=== PATIENT | male | born 1980 | race Caucasian/White ===

== ENCOUNTER 2020-02-01 17:56 | Emergency (ER) | payer OTHER ==
[2020-02-01 18:07] VITALS: TEMP 99; BMI 29.0
--- NOTE | 2020-02-01 18:07 | PDOC ---
Rapid Medical Evaluation Time Seen by Provider: 02/01/20 18:04 Medical Evaluation: Allergies Allergy/AdvReac Type Severity Reaction Status Date / Time No Known Allergies Allergy Verified 02/01/20 18:04 02/01/20 18:05 CC: stung by a bee yesterday in mouth while drinking soda , hx allergies to bees, now with difficulty swallowing Exam: noted edema under chin extending to upper ant aspect of neck, vss Plan: iv, dph, decadron Discharge Disposition - Diagnosis Allergy to bee sting - Referrals - Patient Instructions - Post Discharge Activity
[2020-02-01] MEDS ORDERED: methylPREDNISolone NA SUCC 125 MG/2 ML VIAL IVPB ONE (18:11)
[2020-02-01] MEDS ORDERED: methylPREDNISolone NA SUCC 125 MG/2 ML VIAL ONE (18:34)
[2020-02-01] MEDS ORDERED: DEXAMETHASONE SOD PHOSPHATE 20 MG/5 ML VIAL IVPB ONE (20:16)
[2020-02-01] MEDS ORDERED: FAMOTIDINE 20 MG/50 ML IVPB 20 MG/50 ML MG IVPB ONE ×2 (20:17→20:23)
[2020-02-01] MEDS ORDERED: DEXAMETHASONE SOD PHOSPHATE 4 MG/1 ML VIAL ONE (20:23)
--- NOTE | 2020-02-01 20:25 | PDOC ---
History of Present Illness - General Chief Complaint: Bite Stated Complaint: INSECT BITE Time Seen by Provider: 02/01/20 18:04 - History of Present Illness Initial Comments: 39 yo male with no significant PMH presents after getting stung by a bee. Pt says he was drinking his soda yesterday when he got stung by a bee on the right side of his tongue. He woke up this morning with swelling on his tongue and neck. He endorses difficulty swallowing and breathing. He has a known hx of bee sting allergy with a previous sting in his hand causing swelling in his arm and neck. He also endorses chills. He denies fevers, headache, blurred vision, lightheadedness, cp, nvd. He does not have any other allergies. Past History - Medical History Allergies/Adverse Reactions: Allergies Allergy/AdvReac Type Severity Reaction Status Date / Time bee venom protein (honey bee) Allergy Verified 02/01/20 18:07 Home Medications: Ambulatory Orders Epinephrine [Epipen 2-John] 0.3 mg IJ ASDIR #1 kit 02/02/20 COPD: No - Immunization History Immunization Up to Date: Yes - Psycho-Social/Smoking History Smoking History: Never smoked - Substance Abuse Hx (Audit-C & DAST Scrn) How often the patient has a drink containing alcohol: Never Score: In Men: 4 or > Positive; In Women: 3 or > Positive: 0 Screen Result (Pos requires Nsg. Audit-10AR): Negative In the last yr the pt used illegal drug/Rx for NonMed reason: No Score: Yes response is considered Positive: 0 Screen Result (Positive result requires Nsg. DAST-10): Negative Review of Systems - Review of Systems Able to Perform ROS?: Yes Constitutional: Yes: Chills. No: Diaphoresis, Fever HEENTM: Yes: Throat Swelling, Mouth Pain, Difficulty Swallowing. No: Recent change in vision, Double Vision Respiratory: Yes: Shortness of Breath. No: Cough, Productive cough Cardiac (ROS): No: Chest Pain, Chest Tightness ABD/GI: No: Constipated, Diarrhea, Nausea, Vomiting : No: Burning, Dysuria Musculoskeletal: No: Joint Pain, Muscle Pain Neurological: No: Headache, Weakness, Ataxia, Dizziness Psychiatric: No: Anxiety, Depression, Mood Swings Endocrine: No: Intolerance to Cold, Intolerance to Heat Hematologic/Lymphatic: No: Anemia, Easy Bruising *Physical Exam - Vital Signs Last Vital Signs Temp Pulse Resp BP Pulse Ox 99.0 F 85 18 131/94 100 02/01/20 18:04 02/01/20 18:04 02/01/20 18:04 02/01/20 18:04 02/01/20 18:04 - Physical Exam General Appearance: Yes: Appropriately Dressed. No: Apparent Distress HEENT: positive: Other (swollen tongue and neck. slurred speech. no stridor.) Neck: positive: Trachea midline, Other (right sided swelling). negative: Tender Respiratory/Chest: positive: Lungs Clear, Normal Breath Sounds. negative: Respiratory Distress Cardiovascular: positive: Regular Rhythm, Regular Rate, S1, S2. negative: Edema, JVD Gastrointestinal/Abdominal: positive: Normal Bowel Sounds, Flat, Soft. negative: Tender Musculoskeletal: positive: Normal Inspection. negative: Decreased Range of Motion Extremity: positive: Normal Capillary Refill, Normal Inspection, Normal Range of Motion Integumentary: positive: Normal Color, Dry, Warm, Swelling Neurologic: positive: director rehabilitation program II-XII NML intact, Fully Oriented, Alert, Normal Mood/Affect ED Treatment Course - Medications Given in the ED: ED Medications Discontinued Medications Generic Name Dose Route Start Last Admin Trade Name Freq PRN Reason Stop Dose Admin Diphenhydramine HCl 50 mg 02/01/20 18:07 02/01/20 18:48 Benadryl Injection - IVPB 02/01/20 18:08 50 mg ONCE ONE Administration Methylprednisolone Sodium Succinate 125 mg 02/01/20 18:11 02/01/20 18:57 Solu-Medrol - IVPB 02/01/20 18:12 125 mg ONCE ONE Administration Medical Decision Making - Medical Decision Making 39 yo male with no PMH presents 24 hours after a bee sting to the right sided tongue with difficulty in breathing/swallowing. Pt treated with famotidine, benadryl, methylprednisone, dexamethasone Symptoms gradually improving. Pt placed on monitor and showing normal vitals with regular pCO2 capnography Plan to keep patient in ED overnight to assess airway. Anesthesia called to assess airway at bedside in case we needed emergency intubation. Pt discharged to Dr. Dominguez Discharge - Discharge Information Problems reviewed: Yes Clinical Impression/Diagnosis: Allergy to bee sting, Submandibular swelling, Tongue swelling Condition: Good Disposition: HOME - Admission No - Additional Discharge Information Prescriptions: Epinephrine [Epipen 2-John] 0.3 mg IJ ASDIR #1 kit - Follow up/Referral Referrals: Anel Cain MD [Staff Physician] - - Patient Discharge Instructions Patient Printed Discharge Instructions: DI for Insect Allergy, How to use an Epinephrine Auto-Injector -- Adult Additional Instructions: You were seen today for swelling to your tongue and area under your tongue. This was likely an allergic reaction to the bee sting. It appears as though you are allergic to bees. Be careful around them. The next reaction could be worse! I have sent a prescription for an Epi pen to your pharmacy. You need to keep this with you. Use it like we talked about before you left. I have also included a few packets about your condition and the Epi pen. You should read those. You need to follow up with a primary care doctor. I have entered a referral for you to see Dr. Cain. You will need to call to make an appointment. The number is included in this packet. A copy of todays results are attached to this packet. Take it to the appointment so your doctor can review them. Return to the ED for new or worsening symptoms, including trouble swallowing, tongue swelling, or noisy breathing. Print Language: KINYARWANDA - Post Discharge Activity Work/Back to School Note: Back to Work
--- NOTE | 2020-02-01 22:34 | PDOC ---
Documentation entered by Aliyah Driscoll SCRIBE, acting as scribe for Danisha Tafoya MD. Danisha Tafoya MD: This documentation has been prepared by the scribe, Aliyah Dyson SCRIBE, under my direction and personally reviewed by me in its entirety. I confirm that the documentation accurately reflects all work, treatment, procedures, and medical decision making performed by me. Attending Attestation - Resident Resident Name: Kaden Enrique - ED Attending Attestation I have performed the following: I have examined & evaluated the patient, The case was reviewed & discussed with the resident, I agree w/resident's findings & plan, Exceptions are as noted - HPI HPI: 02/01/20 22:32 39 yo male with no significant PMH presents after getting stung by a bee on his tongue yesterday while drinking a soda. States he woke up this morning and noticed swelling of his tongue with some pain with swallowing and mild SOB. Did not take any medications prior to arrival. Denies change in voice. He has a known hx of bee sting allergy with a previous sting in his hand causing swelling in his arm and neck. Denies fevers, headache, cough, abdominal pain, n/v/d. - Physicial Exam PE: 02/01/20 21:14 General: well appearing HEENT: moderate swelling of tongue on L side, minimal sublingual swelling, +submandibular swelling, posterior OP visualized, uvula midline, no muffled or hot potato voice Neck: FROM, supple Chest: CTAB, good air entry, speaking in full sentences, no stridor, no wheezes CVS: + s1 s2, RRR - Medical Decision Making 02/01/20 21:15 39 yo M with tongue swelling and some submandibular and sublingual swelling after a bee sting on his tongue yesterday. No evidence of airway compromise at present time and patient reports improvement in swelling after recieving solumedrol and benadryl shortly after arrival. Patient also reports no longer has SOB or pain with swallowing since receiving medications. Likely local reaction to bee sting. Much less likely tristian's angina. Plan: -decadron -monitor in ED -reassess This clinical encounter is taking place during a federal and state health care emergency attributable to the novel Hagan Virus pandemic. The [employer] of the Department of Health and Human Services has declared, pursuant to the Public Health Service Act 319F-3 (42 U.S.C. 247d-6d), that a covered persons activities related to medical countermeasures against COVID-19 will be immune from liability under Federal and State law. Airway apppears patient and patient without any respiratory complaints at present aquilino however Pt. evaluated by anesthesia in the event that condition worsens and patient requires emergent airway management. Patient monitored in ED >12 hours with siginificant improvement in symptoms. Will d/c with epi pen, strict return precautions, recommend PMD f/u Discharge - Discharge Information Problems reviewed: Yes Clinical Impression/Diagnosis: Allergy to bee sting, Submandibular swelling, Tongue swelling Condition: Good Disposition: HOME - Additional Discharge Information Prescriptions: Epinephrine [Epipen 2-John] 0.3 mg IJ ASDIR #1 kit - Follow up/Referral Referrals: Anel Cain MD [Staff Physician] - - Patient Discharge Instructions Patient Printed Discharge Instructions: DI for Insect Allergy, How to use an Epinephrine Auto-Injector -- Adult Additional Instructions: You were seen today for swelling to your tongue and area under your tongue. This was likely an allergic reaction to the bee sting. It appears as though you are allergic to bees. Be careful around them. The next reaction could be worse! I have sent a prescription for an Epi pen to your pharmacy. You need to keep this with you. Use it like we talked about before you left. I have also included a few packets about your condition and the Epi pen. You should read those. You need to follow up with a primary care doctor. I have entered a referral for you to see Dr. Cain. You will need to call to make an appointment. The number is included in this packet. A copy of todays results are attached to this packet. Take it to the appointment so your doctor can review them. Return to the ED for new or worsening symptoms, including trouble swallowing, tongue swelling, or noisy breathing. Print Language: ARMENIAN - Post Discharge Activity Work/Back to School Note: Back to Work
--- NOTE | 2020-02-01 23:56 | PDOC ---
*Physical Exam - Vital Signs Last Vital Signs Temp Pulse Resp BP Pulse Ox 99.0 F 73 18 129/83 100 02/01/20 18:04 02/01/20 20:48 02/01/20 20:48 02/01/20 20:48 02/01/20 20:48 ED Treatment Course - Medications Given in the ED: ED Medications Discontinued Medications Generic Name Dose Route Start Last Admin Trade Name Peter PRN Reason Stop Dose Admin Dexamethasone Sodium Phosphate 12 mg 02/01/20 20:16 02/01/20 20:47 Decadron Injection - IVPB 02/01/20 20:17 12 mg ONCE ONE Administration Diphenhydramine HCl 50 mg 02/01/20 18:07 02/01/20 18:48 Benadryl Injection - IVPB 02/01/20 18:08 50 mg ONCE ONE Administration Famotidine/Sodium Chloride 20 mg in 50 mls @ 100 mls/hr 02/01/20 20:17 02/01/20 20:35 Pepcid 20 Mg Premixed Ivpb - IVPB 02/01/20 20:46 100 mls/hr ONCE ONE Administration Methylprednisolone Sodium Succinate 125 mg 02/01/20 18:11 02/01/20 18:57 Solu-Medrol - IVPB 02/01/20 18:12 125 mg ONCE ONE Administration Medical Decision Making - Medical Decision Making Received sign out from resident Dr. Enrique. In short, pt is a 39 y/o male presenting with tongue and submandibular swelling one day s/p bee sting to tongue. Received steroids, Benadryl, and Pepcid. Low suspicion for anaphylaxis. Currently being monitored on continuous pulse oximetry and Et-CO2 via nasal cannula. Anticipate discharge home after overnight observation. 02 Feb 2020 03:03 AM Pt reassessed. Found sleeping. Reviewed monitor data. No hypoxia, bradypnea, or tachypnea observed. Will continue to monitor. 02 Feb 2020 05:08 AM Pt reassessed. Found awake. Reports feeling better. Submandibular swelling has improved and the area is soft. The tongue swelling has almost completely resolved. No muffled voice, stridor, or wheezing appreciated. Pt states he feels comfortable completing his observation period at this time. Prescribed Epi-Pen auto injector. Provided bedside teaching for use. Pt expressed verbal understanding. Also provided PCP referral. SUggested pt should establish a PCP and receive follow up for todays visit. Clark Dominguez M.D., PGY3 Emergency Medicine Resident Discharge - Discharge Information Problems reviewed: Yes Clinical Impression/Diagnosis: Allergy to bee sting, Submandibular swelling, Tongue swelling Condition: Good Disposition: HOME - Admission No - Additional Discharge Information Prescriptions: Epinephrine [Epipen 2-John] 0.3 mg IJ ASDIR #1 kit - Follow up/Referral Referrals: Anel Cain MD [Staff Physician] - - Patient Discharge Instructions Patient Printed Discharge Instructions: DI for Insect Allergy, How to use an Epinephrine Auto-Injector -- Adult Additional Instructions: You were seen today for swelling to your tongue and area under your tongue. This was likely an allergic reaction to the bee sting. It appears as though you are allergic to bees. Be careful around them. The next reaction could be worse! I have sent a prescription for an Epi pen to your pharmacy. You need to keep this with you. Use it like we talked about before you left. I have also included a few packets about your condition and the Epi pen. You should read those. You need to follow up with a primary care doctor. I have entered a referral for you to see Dr. Cain. You will need to call to make an appointment. The number is included in this packet. A copy of todays results are attached to this packet. Take it to the appointment so your doctor can review them. Return to the ED for new or worsening symptoms, including trouble swallowing, tongue swelling, or noisy breathing. Print Language: CENTRAL AFRICAN - Post Discharge Activity Work/Back to School Note: Back to Work
[2020-02-02 05:01] VITALS: BP 130/86; PULSE 68
== END 2020-02-02 05:28 | disposition home or self-care (01) ==
LOC: JER 17:56
PROC: 3E033GC Introduction of Other Therapeutic Substance into Peripheral Vein, Percutaneous Approach (ICD-10-PCS; principal; 2020-02-01)
DX: T63.441A Toxic effect of venom of bees, accidental (unintentional), initial encounter (principal)
CPT/HCPCS: 99284-25

== ENCOUNTER 2021-03-10 02:41 | Inpatient (IN) | payer OTHER ==
[2021-03-10] MEDS ORDERED: ONDANSETRON 4 MG/2 ML VIAL IVPUSH ONE (03:31)
[2021-03-10] MEDS ORDERED: FAMOTIDINE 20 MG/50 ML IVPB 20 MG/50 ML MG IVPB ONE ×2 (03:31→03:32)
[2021-03-10] MEDS ORDERED: SODIUM CHLORIDE 1,000 ML IV STA (03:32)
[2021-03-10] MEDS ORDERED: ONDANSETRON 4 MG/2 ML VIAL ONE ×2 (03:32→10:24)
[2021-03-10] MEDS ORDERED: MAG HYDROX/AL HYDROX/SIMETH 30 ML UNIT-DOSE CUP ONE (03:32)
[2021-03-10] MEDS ORDERED: morphine CARPU-JECT 2 MG/1 ML DISP.SYRIN IVPUSH ONE ×2 (03:41→06:18)
[2021-03-10] MEDS ORDERED: morphine SULFATE 4 MG/ML VIAL ONE ×2 (03:46→06:37)
[2021-03-10 04:15] LABS: BASO % 0.2 % (0-2.0); EOS % 0.1 % (0-4.5); HEMATOCRIT 45.3 % (35.4-49); HEMOGLOBIN 15.8 GM/dL (11.7-16.9); MCH 32.8 pg (25.7-33.7); MEAN CELL VOLUME 93.9 fl (80-96); MEAN PLT VOLUME 9.7 fl (7.5-11.1); MONO % 3.2 % (3.8-10.2); NEUT % 87.5 % (42.8-82.8); PLATELET COUNT 206 10^3/uL (134-434); RBC 4.82 M/mm3 (4.00-5.60); RDW 12.9 % (11.9-15.9); WHITE BLOOD COUNT 14.2 K/mm3 (4.0-10.0)
[2021-03-10 04:36] LABS: CALCIUM 8.9 mg/dL (8.5-10.1)
[2021-03-10 04:37] LABS: ALBUMIN 4.2 g/dl (3.4-5.0); BLOOD UREA NITROGEN 15.1 mg/dL (7-18)
[2021-03-10 04:40] LABS: CREATININE 0.8 mg/dL (0.55-1.3)
[2021-03-10 04:41] LABS: BILIRUBIN,TOTAL 0.4 mg/dL (0.2-1); TOT PROT 7.6 g/dl (6.4-8.2)
[2021-03-10 05:49] LABS: PH,URINE 8.5 (5.0-8.0); URINE APPEARANCE CLOUDY; URINE BILIRUBIN NEGATIVE (NEGATIVE); URINE COLOR YELLOW; URINE GLUCOSE (UA) NEGATIVE (NEGATIVE); URINE KETONE NEGATIVE (NEGATIVE); URINE LEUK ESTERASE NEGATIVE (NEGATIVE); URINE NITRITE NEGATIVE (NEGATIVE); URINE PROTEIN TRACE (NEGATIVE); URINE UROBILINOGEN 0.2 mg/dL (0.2-1.0)
[2021-03-10] MEDS ORDERED: CEFOXITIN SODIUM 2 GM in DEXTROSE 5%-WATER - 100 ML IVPB ONE (06:17)
[2021-03-10] MEDS: SODIUM CHLORIDE 1,000 ML IV SCH (06:46)
[2021-03-10 07:11] LABS: INR 0.98 (0.83-1.09); PROTHROMBIN TIME (PATIENT) 12.1 SEC (9.7-13.0)
[2021-03-10 07:14] LABS: ACTIVATED PTT 33.5 SECONDS (25.2-36.5)
[2021-03-10] MEDS ORDERED: ONDANSETRON 4 MG/2 ML VIAL IVPUSH PRN (08:53)
[2021-03-10] MEDS ORDERED: ACETAMINOPHEN 1000 MG/100 ML VIAL IVPB PRN (08:54)
[2021-03-10] MEDS ORDERED: PROPOFOL 20 ML ONE ×2 (09:42)
[2021-03-10] MEDS ORDERED: ROCURONIUM BROMIDE 100 MG/10 ML VIAL ONE ×2 (09:43→11:04)
[2021-03-10] MEDS ORDERED: MIDAZOLAM HCL 2 MG/2 ML SINGLE DOSE VIAL ONE (09:43)
[2021-03-10] MEDS ORDERED: PIPERACILLIN/TAZOBACTAM 3.375 GM VIAL IVPB ONE ×2 (10:08→10:15)
[2021-03-10] MEDS ORDERED: DEXAMETHASONE SOD PHOSPHATE 4 MG/1 ML VIAL ONE (10:24)
[2021-03-10] MEDS ORDERED: GLYCOPYRROLATE 0.2 MG/1 ML VIAL ONE (11:11)
[2021-03-10] MEDS ORDERED: NEOSTIGMINE METHYLSULFATE 0.5 MG/ML - 10 ML MDV ONE (11:11)
[2021-03-10] MEDS ORDERED: BUPIVACAINE HCL/PF 0.5% (5MG/ML) 10 ML VIAL IJ ONE (11:20)
[2021-03-10] MEDS ORDERED: BENZOIN/ALOE VERA/STORAX/TOLU 58 ML BOTTLE ONE (11:26)
[2021-03-10] MEDS ORDERED: LACTATED RINGERS SOLUTION 1,000 ML IV SCH (11:45)
[2021-03-10 17:19] VITALS: BMI 29.5
[2021-03-11] MEDS: oxyCODONE HCL 5 MG TABLET PO PRN ×2 (06:08→15:52)
[2021-03-11] MEDS: SODIUM CHLORIDE 1,000 ML IV SCH (06:57)
[2021-03-11 10:37] LABS: BASO % 0.3 % (0-2.0); EOS % 0.1 % (0-4.5); HEMATOCRIT 36.1 % (35.4-49); HEMOGLOBIN 12.5 GM/dL (11.7-16.9); MCHC 34.5 g/dl (32.0-35.9); MEAN CELL VOLUME 95.6 fl (80-96); MEAN PLT VOLUME 9.7 fl (7.5-11.1); MONO % 8.9 % (3.8-10.2); NEUT % 76.7 % (42.8-82.8); PLATELET COUNT 188 10^3/uL (134-434); RBC 3.78 M/mm3 (4.00-5.60); RDW 12.9 % (11.9-15.9); WHITE BLOOD COUNT 11.9 K/mm3 (4.0-10.0)
[2021-03-11 10:51] LABS: BLOOD UREA NITROGEN 9.7 mg/dL (7-18); CALCIUM 7.9 mg/dL (8.5-10.1); MAGNESIUM 2.2 mg/dL (1.8-2.4)
[2021-03-11 10:54] LABS: CREATININE 0.5 mg/dL (0.55-1.3)
[2021-03-11 10:55] LABS: PHOSPHOROUS 2.7 mg/dL (2.5-4.9)
[2021-03-11 10:56] LABS: BILIRUBIN,TOTAL 0.6 mg/dL (0.2-1); TOT PROT 6.1 g/dl (6.4-8.2)
[2021-03-11 10:58] LABS: ALBUMIN 3.1 g/dl (3.4-5.0)
[2021-03-11 15:54] VITALS: BP 122/78; PULSE 70; TEMP 98.6
== END 2021-03-11 16:05 | disposition home or self-care (01) | DRG 225 ==
LOC: JER 02:41 → JERBED 06:09 → J8W 13:52
PROVIDERS: ATTEND Nurse Practitioner Acute Care
PROC: 0DTJ4ZZ Resection of Appendix, Percutaneous Endoscopic Approach (ICD-10-PCS; principal; 2021-03-10 13:30)
DX: K35.33 Acute appendicitis with perforation, localized peritonitis, and gangrene, with abscess (principal); R63.0 Anorexia; D72.829 Elevated white blood cell count, unspecified; R11.2 Nausea with vomiting, unspecified; R10.31 Right lower quadrant pain
CPT/HCPCS: 36415; 71045-TC-FY; 74177-TC; 80053; 81003; 82550; 82553; 83690; 83735; 84100; 84484; 85025; 85610; 85730; 86850; 86900; 86901; 87086; 88304-TC; 93005; 93010; 94760; 99285-25; C9803; J0131; Q9967; U0003; U0005

== ENCOUNTER 2024-04-06 18:41 | Emergency (ER) | payer SELFPAY ==
[2024-04-06 18:49] VITALS: BP 149/97; PULSE 70; RESP 18; TEMP 97.6; BMI 28.1
[2024-04-06] MEDS ORDERED: ACETAMINOPHEN 325 MG TABLET (FP) ONE (19:50)
[2024-04-06] MEDS: ACETAMINOPHEN 325 MG TABLET (FP) PO ONE (20:03)
[2024-04-06 20:07] LABS: BASO % 0.6 % (0-2.0); EOS % 0.8 % (0-4.5); HEMATOCRIT 46.7 % (35.4-49); LYMPH % 33.7 % (8-40); MCH 32.4 pg (25.7-33.7); MCHC 34.4 g/dl (32.0-35.9); MEAN CELL VOLUME 94.4 fl (80-96); MEAN PLT VOLUME 8.9 fl (7.5-11.1); MONO % 7.4 % (3.8-10.2); NEUT % 57.5 % (42.8-82.8); PLATELET COUNT 205 10^3/uL (134-434); RBC 4.95 M/mm3 (4.00-5.60); RDW 13.1 % (11.9-15.9); WHITE BLOOD COUNT 7.1 K/mm3 (4.0-10.0)
[2024-04-06 20:15] LABS: INR 0.97 (0.83-1.09); PROTHROMBIN TIME (PATIENT) 11.2 SEC (9.7-13.0)
[2024-04-06 20:17] LABS: ACTIVATED PTT 36.1 SECONDS (25.2-36.5)
[2024-04-06 20:42] LABS: POTASSIUM 3.9 mmol/L (3.5-5.1)
[2024-04-06 20:44] LABS: ALBUMIN 4.5 g/dl (3.4-5.0); BLOOD UREA NITROGEN 10.3 mg/dL (7-18); CALCIUM 9.3 mg/dL (8.5-10.1); MAGNESIUM 2.2 mg/dL (1.8-2.4)
[2024-04-06 20:48] LABS: CREATININE 0.7 mg/dL (0.55-1.3)
[2024-04-06 20:49] LABS: BILIRUBIN,TOTAL 0.4 mg/dL (0.2-1); TOT PROT 7.4 g/dl (6.4-8.2)
== END 2024-04-06 23:11 | disposition home or self-care (01) ==
LOC: JER 18:41
DX: R07.89 Other chest pain (principal); R00.2 Palpitations; M79.602 Pain in left arm
CPT/HCPCS: 36415; 71046-TC-FY; 80053; 83735; 84484; 85025; 85610; 85730; 93005; 93010; 99285-25